=== PATIENT | male | born 1950 | race Caucasian/White ===

== ENCOUNTER → 2016-10-21 | Outpatient (CLI) | payer MEDICARE, OTHER ==
--- NOTE | 2016-10-21 15:12 | REP ---
RIGHT SHOULDER SERIES: Three views of the right shoulder are performed. I see no acute fracture or dislocation. Calcification along the superolateral humeral head is likely tendinous and raises the possibility of calcific tendinitis. IMPRESSION: Calcification along the superolateral humeral head suggests calcific tendinitis. Signed by Moises Murphy MD 10/21/2016 05:41 P
== END ==
LOC: M WUC 13:39
PROVIDERS: ATTEND Nurse Practitioner Family
DX: M15.8 Other polyosteoarthritis (principal)

== ENCOUNTER → 2018-06-27 | Outpatient (CLI) | payer MEDICARE, OTHER ==
[2018-06-29 14:21] LABS: PSA TOTAL 3.3 ng/mL (0.0-4.0)
== END ==
LOC: M WUC 12:36
DX: Z12.5 Encounter for screening for malignant neoplasm of prostate (principal)
CPT/HCPCS: 84154

== ENCOUNTER → 2020-12-19 | Outpatient (CLI) | payer MEDICARE, OTHER ==
--- NOTE | 2020-12-19 11:31 | REPVR ---
PROCEDURE INFORMATION: Exam: MR Lumbar Spine Without Contrast Exam date and time: 12/19/2020 10:51 AM Age: 70 years old Clinical indication: Other: Lumbar radiculopathy TECHNIQUE: Imaging protocol: Multiplanar magnetic resonance images of the lumbar spine without intravenous contrast. COMPARISON: No relevant prior studies available. FINDINGS: Vertebrae: Trace 1 mm of grade 1 degenerative anterolisthesis of L4 on L5. No acute fracture seen. Spinal cord: The conus medullaris ends normally. Disc desiccation throughout. Mild disc height loss and spondylosis at L2-L3. Minimal endplate degenerative changes elsewhere. L1-L2: Slight disc bulge and mild facet arthropathy. A subtle central disc protrusion with high-intensity zone. No stenoses. L2-L3: Mild diffuse disc bulge as well as mild to moderate facet arthropathy and ligamentum flavum buckling. Trace facet joint effusions. No significant central spinal canal stenosis. Mild bilateral neural foraminal stenoses. L3-L4: Mild diffuse disc bulge as well as mild to moderate facet arthropathy and ligamentum flavum buckling with trace facet joint effusions. No significant central spinal canal stenosis. Mild bilateral neural foraminal stenoses. L4-L5: Moderate diffuse disc bulge as well as severe right and moderate left facet arthropathy with right greater than left ligamentum flavum buckling. High-intensity zone in right foraminal to far lateral disc margin. Central spinal canal stenosis is mild. The right lateral recess is narrowed near the right L5 nerve root. Moderate right and mild left neural foraminal stenoses. There is an extra canalicular synovial cyst on the right. L5-S1: Mild diffuse disc bulge as well as mild to moderate facet arthropathy with trace facet joint effusions. The central spinal canal is patent. No evidence of S1 nerve root impingement. The neural foramina remain patent. Soft tissues: Unremarkable. Kidneys and ureters: Bilateral kidney cysts. IMPRESSION: Mild central spinal canal stenosis at L4-L5. The right lateral recess is narrowed near the right L5 nerve root. Moderate right neural foraminal stenosis. Electronically signed by: Anai Mojica On 12/19/2020 11:30:59 AM
== END ==
LOC: M PLARAD 09:07
PROVIDERS: ATTEND Nurse Practitioner Family
DX: M54.16 Radiculopathy, lumbar region (principal); N28.1 Cyst of kidney, acquired